=== PATIENT | female | born 1990 | race Caucasian/White ===

== ENCOUNTER 2017-07-10 18:18 | Emergency (ER) | payer BC, MEDICAID, OTHER ==
[~2017-07-10] VITALS: Ht 165.1 cm; Wt 75.0 kg
[~2017-07-10 18:18] MED LIST: IBUP600 PO; PREN0.01 PO; SYNT88TA PO
[2017-07-10 18:19] VITALS: BP 128/81; PULSE 96; RESP 20; TEMP 99.7; O2SAT 100
[2017-07-10] MEDS ORDERED: SYNT88TA PO (21:02)
[2017-07-10 21:48] LABS: AUTOMATED NEUTROPHIL # 5.3 TH/MM3 (1.8-7.7); BASOPHIL # 0.1 TH/MM3 (0-0.2); BASOPHIL % 0.8 % (0.0-2.0); EOSINOPHIL # 0.3 TH/MM3 (0-0.4); EOSINOPHIL % 2.5 % (0.0-4.0); HEMATOCRIT 39.6 % (35.0-46.0); HEMO FLAGS DIFF FINAL; LYMPH % 39.9 % (9.0-44.0); LYMPHOCYTE # 4.1 TH/MM3 (1.0-4.8); MEAN CELL VOLUME 97.3 FL (80.0-100.0); NEUT % 50.8 % (16.0-70.0); PLATELET COUNT 353 TH/MM3 (150-450); RED BLOOD COUNT 4.07 MIL/MM3 (4.00-5.30); RED CELL DISTRIBUTION WIDTH 12.1 % (11.6-17.2); WHITE BLOOD COUNT 10.4 TH/MM3 (4.0-11.0)
[2017-07-10 21:52] LABS: BLOOD, URINE MOD (NEG); COMMENT (UR) CULT NOT INDICATED; CULTURE IF INDICATED CULT NOT INDICATED; GLUCOSE,URINE NEG (NEG); KETONE, URINE NEG (NEG); MUCUS URINE FEW /lpf (OCC); NITRITE,URINE NEG (NEG); PH, URINE 6.5 (5.0-8.5); URINE COLOR YELLOW (YELLW/STRAW)
[2017-07-10 22:22] LABS: BETA HCG QUANT 4982 MIU/ML (0-5)
--- NOTE | 2017-07-10 23:39 | PD ---
HPI Chief Complaint: Related Problem Time Seen by Provider: 21:06 Travel History International Travel<30 days: No Contact w/Intl Traveler<30days: No Traveled to known affect area: No History of Present Illness HPI The patient is a 26-year-old female 4, para 2, last menstruation about 7 weeks prior arrives complaining of a cramping lower abdominal pain coupled with vaginal bleeding of bright red blood and clots throughout most of the day. No symptoms consistent with acute anemia. No abnormal vaginal discharge otherwise. PFSH Past Medical History Autoimmune Disease: No Anxiety: No Cardiovascular Problems: No Diminished Hearing: No Genitourinary: No Musculoskeletal: No Neurologic: No Psychiatric: No Respiratory: No Immunizations Current: Yes Thyroid Disease: Yes (HYPOTHYROIDISM) Tetanus Vaccination: Unknown Influenza Vaccination: No ?: LMP: 05/20/17 Past Surgical History Genitourinary Surgery: Yes (D AND C IN MARCH 2007) Gynecologic Surgery: Yes (D&C MARCH 2007 FOR MISCARRIAGE) Social History Alcohol Use: No Tobacco Use: No Substance Use: No Allergies-Medications (Allergen,Severity, Reaction): Coded Allergies: No Known Allergies (Verified , 07/10/17) Reported Meds & Prescriptions Reported Meds & Active Scripts Active Reported Synthroid (Levothyroxine Sodium) 88 Mcg Tab 88 Mcg PO DAILY Review of Systems Except as stated in HPI: all other systems reviewed are Neg Physical Exam Narrative GENERAL: 26 F, WNWD, NAD SKIN: Warm and dry. HEAD: Atraumatic. Normocephalic. EYES: Pupils equal and round. No scleral icterus. No injection or drainage. ENT: No nasal bleeding or discharge. Mucous membranes pink and moist. NECK: Trachea midline. No JVD. CARDIOVASCULAR: Regular rate and rhythm. RESPIRATORY: No accessory muscle use. Clear to auscultation. Breath sounds equal bilaterally. GASTROINTESTINAL: Abdomen soft, non-tender, nondistended. Hepatic and splenic margins not palpable. MUSCULOSKELETAL: Extremities without clubbing, cyanosis, or edema. No obvious deformities. NEUROLOGICAL: Awake and alert. No obvious cranial nerve deficits. Motor grossly within normal limits. Five out of 5 muscle strength in the arms and legs. Normal speech. PSYCHIATRIC: Appropriate mood and affect; insight and judgment normal. Data Data Last Documented VS Vital Signs Date Time Temp Pulse Resp B/P Pulse Ox O2 Delivery O2 Flow Rate FiO2 07/10/17 21:02 16 8/15/17 18:19 99.7 96 128/81 100 Room Air VS reviewed Orders Beta Hcg (Quant/Titer) (07/10/17 21:13) Complete Blood Count With Diff (07/10/17 21:13) Complete Rh (07/10/17 21:13) Urinalysis - C+S If Indicated (07/10/17 21:13) Ed Urine Pregnancytest Poc (07/10/17 21:13) Us Pelvis (Ques Pr/Ect)W Trans (07/10/17 ) Labs Laboratory Tests Test 07/10/17 21:30 White Blood Count 10.4 TH/MM3 Red Blood Count 4.07 MIL/MM3 Hemoglobin 13.4 GM/DL Hematocrit 39.6 % Mean Corpuscular Volume 97.3 FL Mean Corpuscular Hemoglobin 33.0 PG Mean Corpuscular Hemoglobin 34.0 % Concent Red Cell Distribution Width 12.1 % Platelet Count 353 TH/MM3 Mean Platelet Volume 7.3 FL Neutrophils (%) (Auto) 50.8 % Lymphocytes (%) (Auto) 39.9 % Monocytes (%) (Auto) 6.0 % Eosinophils (%) (Auto) 2.5 % Basophils (%) (Auto) 0.8 % Neutrophils # (Auto) 5.3 TH/MM3 Lymphocytes # (Auto) 4.1 TH/MM3 Monocytes # (Auto) 0.6 TH/MM3 Eosinophils # (Auto) 0.3 TH/MM3 Basophils # (Auto) 0.1 TH/MM3 CBC Comment DIFF FINAL Differential Comment Urine Color YELLOW Urine Turbidity CLEAR Urine pH 6.5 Urine Specific [place] 1.018 Urine Protein NEG mg/dL Urine Glucose (UA) NEG mg/dL Urine Ketones NEG mg/dL Urine Occult Blood MOD Urine Nitrite NEG Urine Bilirubin NEG Urine Urobilinogen LESS THAN 2.0 MG/DL Urine Leukocyte Esterase TRACE Urine RBC LESS THAN 1 /hpf Urine WBC 4 /hpf Urine Mucus FEW /lpf Microscopic Urinalysis Comment CULT NOT INDICATED Human Chorionic Gonadotropin, 4982 MIU/ML Quant Blood Type AB POSITIVE Rho(D) Type POSITIVE MDM Medical Decision Making Medical Screen Exam Complete: Yes Emergency Medical Condition: Yes Differential Diagnosis IUP, UTI, ectopic , ov torsion, appendicitis, TOA, cervicitis, BV, Trichomoniasis, ov cyst, hernia, mittelschmerz, pain from menstruation Narrative Course Blood type is AB+ Urinalysis reveals hematuria Beta hCG 4982 CBC & BMP Diagram 07/10/17 21:30 Last 24 hours Impressions Pelvis Ultrasound 07/10/17 0000 Signed Impressions: Service Date/Time: Monday, July 10, 2017 22:28 - CONCLUSION: Cannot confirm an intrauterine on this scan. There is a cystic structure within the fundal uterus, but no pole or yolk sac seen. 2.4 cm uniformly echogenic non-hypervascular area in the right ovary does not have the typical appearance of a complicated cyst and is of uncertain significance. No evidence of free fluid. Given the quantitative beta hCG of 4900, cannot exclude ectopic . Chavez Mayo MD The patient is resting comfortably and feels better, is alert and in no distress. The patients results and examination findings were discussed. The repeat examination is unremarkable and benign. The history, exam, diagnostic testing, and current condition do not suggest any significant pathology to warrant further testing, continued ED treatment, admission, or surgical evaluation at this point. The vital signs have been stable. The patient does not have uncontrollable pain, intractable vomiting, or other significant symptoms. The patient's condition is stable and appropriate for discharge. The patient will pursue further outpatient evaluation with a primary care physician or other designated or consulting physician as indicated in the discharge instructions. The patient expressed understanding and was agreeable with this plan. Diagnosis Primary Impression: Vaginal bleeding in Additional Impression: Ovarian mass, right Referrals: Flori Steele MD 1 day Additional Instructions: You have a choice when it comes to health care, and we are glad that you chose [facility]. Hopefully, we have met your expectations on today's visit. You are welcome to return to [facility] at any time, as we are committed to meeting the health care needs of our community. Med/Other Pt SpecificInfo: No Change to Meds Disposition: 01 DISCHARGE HOME Condition: Stable Mustapha Walker MD Jul 10, 2017 23:39
--- NOTE | 2017-07-10 23:51 | RADRPT ---
EXAM DATE/TIME: 07/10/2017 22:28 [facility] COMPARISON: No previous studies available for comparison. INDICATIONS : Pelvic pain and bleeding with . LAB(S): Beta-hC MEDICAL HISTORY : . Hypothyroidism. Miscarriage. SURGICAL HISTORY : Radial fracture repair. Dilation and curettage. ENCOUNTER: Initial ACUITY: 1 day PAIN SCORE: 6/10 LOCATION: Bilateral pelvis MEASUREMENTS: UTERUS: 10.4 x 6.7 x 5.5 cm ENDOMETRIAL STRIPE: 18 mm RIGHT OVARY: 3.7 x 3.2 x 1.3 cm LEFT OVARY: 4.3 x 2.1 x 1.9 cm FINDINGS: There is a saclike structure seen in the fundal uterus which measures 1.8 x 1.4 x 0.7 cm. No yolk sa c and no pole identified. As such, cannot confirm this to be a gestational sac. Intact flow t o both ovaries, but no hyperemic areas seen. There is a rounded intermediate echotexture area with i n the right ovary which measures 2.4 x 2.1 x 1.6 cm; there is through transmission, but the pattern o f echo is suggested this may be solid. In the left ovary, there is a simple cyst measuring 1.6 x 1.1 cm. No evidence of free fluid in either adnexa or in the cul-de-sac. Small nabothian cysts in the cervix. CONCLUSION: Cannot confirm an intrauterine on this scan. There is a cystic structure within the fundal uterus, but no pole or yolk sac seen. 2.4 cm uniformly echogenic non-hypervascular area in th e right ovary does not have the typical appearance of a complicated cyst and is of uncertain signific ance. No evidence of free fluid. Given the quantitative beta hCG of 4900, cannot exclude ectopic pr egnancy. Chavez Mayo MD on July 10, 2017 at 23:44 Board Certified Radiologist. This report was verified electronically.
== END 2017-07-11 00:53 | disposition home or self-care (01) ==
LOC: NEPD 18:18
DX: O20.9 Hemorrhage in early pregnancy, unspecified (principal); N83.201 Unspecified ovarian cyst, right side; Z3A.00 Weeks of gestation of pregnancy not specified
CPT/HCPCS: 76700; 76817; 81001; 84702; 84703; 85025; 86901; 99284